=== PATIENT | female | born 1980 | race African-American/Black ===

== ENCOUNTER 2019-01-23 21:23 | Inpatient (IN) | payer OTHER ==
[~2019-01-23] VITALS: Ht 162.6 cm; Wt 74.8 kg
[2019-01-23 21:26] VITALS: BP 108/62
[2019-01-23] MEDS ORDERED: PROTONIX40 M1 PO (21:52)
[2019-01-23] MEDS ORDERED: ALDACTONE50 MG PO (21:53)
[2019-01-23] MEDS ORDERED: PRENATAL PO (21:53)
[2019-01-23 22:48] LABS: HEMATOCRIT 26.3 % (37.0-47.0); HEMOGLOBIN 8.9 gm/dL (12.0-15.0); MCH 34.6 pg (26.0-34.0); MCHC 33.8 g/dL (28.0-37.0); MCV 102.4 fL (80.0-100.0); PLATELET COUNT 163 thou/uL (150-400); RBC 2.57 mil/uL (4.20-5.00); RDW 21.8 % (10.5-14.5); WBC 6.2 thou/uL (4.0-11.0)
[2019-01-23 22:59] LABS: CALCIUM 8.3 mg/dL (8.5-10.1); CREATININE 0.8 mg/dL (0.6-1.0); POTASSIUM 3.4 mmol/L (3.5-5.1)
[2019-01-23 23:23] LABS: ABSOLUTE NEUTROPHILS 4.4 thou/uL (1.4-8.2); ANISOCYTOSIS 2+; POLYCHROMASIA 1+
[2019-01-23 23:56] LABS: ESR (SEDRATE) 73 mm/hour (0-19)
[2019-01-24 01:29] VITALS: BP 109/57
[2019-01-24 01:37] VITALS: BP 109/57
[2019-01-24 02:00] VITALS: BP 113/66
--- NOTE | 2019-01-24 04:19 | NUR ---
PT ARRIVED ON UNIT 0150. ADMISSION COMPLETE. EDUCATION PROVIDED. orders implemented. call light and personal belonings within reach, will continue poc until eos.
[2019-01-24 07:27] VITALS: BP 100/59
[2019-01-24 09:13] LABS: HEMATOCRIT 24.3 % (37.0-47.0); HEMOGLOBIN 8.4 gm/dL (12.0-15.0); MCH 35.1 pg (26.0-34.0); MCHC 34.4 g/dL (28.0-37.0); RBC 2.38 mil/uL (4.20-5.00); RDW 21.5 % (10.5-14.5); WBC 6.2 thou/uL (4.0-11.0)
[2019-01-24 09:28] LABS: CALCIUM 8.4 mg/dL (8.5-10.1); CREATININE 0.8 mg/dL (0.6-1.0); POTASSIUM 3.6 mmol/L (3.5-5.1)
--- NOTE | 2019-01-24 11:29 | NUR ---
WOUND CONSULT; A LEDT LOWER EXTREMITY WOUND WAS IDENTIFIED MEANSURES 3 X .9 X 1.0 WITH A TUNNEL @ 12:00/ THE TUNNEL MEANSURES 2.0 CM. THE WOUND IS TENDER. NO DRAINAGE SEEN. RECOMMENDATION; CLEANSE W/ NS OR WOUND CLEANSER, PACK WITH AQUACEL AG TO 12:00,COVER WITH OPTIFOAM AG, SECURE WITH A TUBIGRIP, CHANGE DAILY/PRN DISCUSSED WITH RN
--- NOTE | 2019-01-24 15:46 | NUR ---
INITIAL ASSESSMENT: Pt evaluated for d/c planning needs. Reviewed chart and spoke with nurse and pt. Pt is alert and oriented. Pt was hospitalized at [facility] for surgery, returned home and went back to [facility] for infection. Pt said she completed her antibiotics about a week ago. Pt was independent with ADL's prior to admission to the hospital and has cane for ambulation. Will remain available to assist as needed.
[2019-01-24 16:59] VITALS: BP 115/65
--- NOTE | 2019-01-24 18:19 | NUR ---
Assumed care of pt at 0700. Pt a&ox4. IVF and antibiotic infusing. Wound dressing changed per order. Pt diet changed to regular. Pt underwent US cyst aspiration. Call light within reach. Will continue to monitor.
[2019-01-24 20:11] VITALS: BP 104/54
--- NOTE | 2019-01-25 08:05 | NUR ---
PATIENT ALERT AND ORIENTED X4. DENIES PAIN. UP IN HALLS. SLEPT OFF AND ON DURING NIGHT. DRESSING ON INNER LLL.
[2019-01-25 09:10] VITALS: BP 110/52
--- NOTE | 2019-01-25 12:47 | HC ---
[facility] [place] [address] CONSULTATION Name: ELLY DAWN Room #: [facility] ADM IN M.R.#: [id number] Admission: 01/24/19 Attend Phys: Guilherme Escamilla MD Discharge: Date of : 84 Report #: [id number] THIS REPORT FOR: //name// CC: [place] physician/PCP Guilherme Escamilla DATE OF SERVICE: 01/24/2019 INFECTIOUS DISEASE CONSULTATION REASON FOR CONSULTATION: I was asked to evaluate concerning left leg soft tissue infection. HISTORY OF PRESENT ILLNESS: The patient is a 38-year-old. On 12/20/2018 at [facility] underwent incision and drainage of the left calf abscess. The specifics of this are not very clear. The patient was a poor historian. She did not want to spend much time discussing her history. She was treated with intravenous antibiotics. I do not know the culture results. She then developed increased swelling to the left leg and breakdown of the skin throughout. She did have pictures of this and looks more like venous stasis ulcerations and dermatitis with secondary infection. This again was treated with IV antibiotic therapy. She improved. Her left medial calf incision has subsequently dehisced. She has had yellow drainage from this. Increased pain and therefore presents to the Emergency Room for further evaluation. Denies any fever, chills or sweats. REVIEW OF SYSTEMS: No cardiopulmonary, GI or complaints. ALLERGIES: None. MEDICATIONS: As noted on her MAR including vancomycin and ceftriaxone. PAST MEDICAL HISTORY: Chronic lower extremity edema, left greater than right. Smoker of cigarettes. FAMILY HISTORY: Noncontributory. SOCIAL HISTORY: Works from home, smoker of cigarettes, minimal alcohol intake. REVIEW OF SYSTEMS: Ten-point review was negative other than what is described above. PHYSICAL EXAMINATION: VITAL SIGNS: Afebrile and hemodynamically stable. SKIN: With left medial calf induration, incisional wound with small amount of serous drainage, tenderness in this calf region. 2+ edema in the lower leg. No [facility] [address] [place] [address] CONSULTATION Name: ELLY DAWN Room #: [facility] ADM IN M.R.#: [id number] Admission: 01/24/19 Attend Phys: Guilherme Escamilla MD Discharge: Date of : 84 Report #: [id number] other palpable adenopathy. EYES: Without scleral icterus. MOUTH: Without mucositis. NECK: Supple. LUNGS: Clear. HEART: Regular, without murmur. ABDOMEN: Soft and nontender with no hepatosplenomegaly or mass. LABORATORY STUDIES: Reviewed. Creatinine 0.8. Serum test negative. Hemoglobin 8.9, WBC 6.2, platelet 162,000. Differential unremarkable. Sedimentation rate 73. RADIOLOGICAL DATA: CT scan of the lower extremities shows rim-enhancing fluid collection, superficial margin of the proximal medial head of the gastroc. Also associated cellulitis and edema. IMPRESSION: 1. Left calf soft tissue abscess. 2. Venous stasis disease. RECOMMENDATIONS: We will continue with vancomycin pending further culture results. Surgical consultation. Obtain records from [facility] for microbiology reports. <ELECTRONICALLY SIGNED> By: Sergei Johnson MD 01/25/19 1247 [id number] Sergei Johnson MD /nt
[2019-01-25] MEDS ORDERED: DOXYCYCLINE 10100 MG PO (14:46)
[2019-01-25 19:27] VITALS: BP 110/52
[2019-01-25 22:14] VITALS: BP 110/52
--- NOTE | 2019-01-25 22:17 | NUR ---
PATIENT ALERT AND ORIENTED AND COOPERATIVE WITH PLAN OF CARE AND STATED WANTS TO GO HOME TODAY. SEEN BY WOUND CARE AND GIVEN WOUND CARE INSTRUCTIONS TO CONTINUE WOULD CARE AT HOME. PATIENT DISCHARGE IN STABLE CONDITION WITH DISCHARGE INSTRUCTIONS AND PRESCRIPTIONS AND ALL PERSONAL BELONGINGS.
--- NOTE | 2019-01-26 11:40 | HC ---
[facility] [place] [address] CONSULTATION Name: ELLY DAWN Room #: [facility] IN M.R.#: [id number] Admission: 01/24/19 Attend Phys: Guilherme Escamilla MD Discharge: 01/25/19 Date of : 84 Report #: [id number] THIS REPORT FOR: //name// CC: [place] physician/PCP Guilherme Escamilla DATE OF SERVICE: 01/25/2019 CHIEF COMPLAINT: Wound to the left medial calf. HISTORY OF PRESENT ILLNESS: This is a 38-year-old female patient who was admitted from the Emergency Department on 01/24/2019. She had a surgical wound to her left medial calf with original surgery being performed on 12/20/2018 at [facility]. It is unclear as to what the cause of the original surgery was for the purpose. She was admitted with however, wound infection and cellulitis. She had a fluid collection noted on CT and underwent a percutaneous drainage. She was seen by General Surgery. She declined surgical exploration or debridement on the basis that she "had too much anesthesia in the last 30 days." I have been asked late in the day today to see her prior to discharge. PAST MEDICAL HISTORY: Positive for bilateral lower extremity edema, left leg surgery of undetermined purpose from 11/2018 with some dehiscence and infection on 01/18/2019. SOCIAL HISTORY: The patient admits to alcohol use on special occasions. Currently, smokes cigarettes daily MEDICATIONS: Include pantoprazole, vitamins, and Aldactone. ALLERGIES: No known drug allergies. FAMILY HISTORY: Noncontributory. REVIEW OF SYSTEMS: CONSTITUTIONAL: The patient denies fever, chills, or weight loss. NEUROLOGICAL: The patient denies focal weakness, numbness, or tingling. EYES: The patient denies visual changes, redness, or drainage. ENT: The patient denies earache, nasal drainage, or sore throat. CARDIOVASCULAR: The patient denies chest pain, palpitations or diaphoresis. PULMONARY: The patient denies cough or shortness of breath. GASTROINTESTINAL: The patient denies nausea, vomiting, diarrhea or abdominal pain. ORTHOPEDIC: The patient has some pain and swelling in the surgical wound in her left medial calf. Other systems in a 14-point review of systems are negative. [address] [address] CONSULTATION Name: ELLY DAWN Room #: [facility] IN M.R.#: [id number] Admission: 01/24/19 Attend Phys: Guilherme Escamilla MD Discharge: 01/25/19 Date of : 84 Report #: [id number] PHYSICAL EXAMINATION: VITAL SIGNS: At this time include temperature 37.0, pulse 67, respiratory rate 17, and blood pressure 110/52. GENERAL: This is a chronically ill-appearing female patient who appears to be in minimal distress. HEENT: Head normocephalic. Nose is clear. NECK: Supple. LUNGS: Diminished. ABDOMEN: Soft, obese, nontender. EXTREMITIES: Lower extremities demonstrate 2-3+ edema bilateral lower extremities and some chronic induration of the left lower extremity. She has what appears to be a surgical incision on the medial aspect of the left proximal calf. There is some tunneling. There is some retained suture material that I have removed at the bedside. There is a mix of granulation and fibrin and still some mucopurulent type drainage present, minimal tenderness and no obvious fluctuance. NEUROLOGIC: The patient is alert and oriented and appropriate. LABORATORY DATA: Include white blood cell count 6.2 with hemoglobin of 8.4. Sodium 138, potassium 3.6, chloride 107, CO2 of 25, BUN 5, and creatinine 0.8. CLINICAL IMPRESSION: 1. Surgical wound infection to the left medial calf. 2. Bilateral lower extremity edema, possibly consistent with longstanding lymphedema. 3. Obesity. RECOMMENDATIONS: At this point in time, we will recommend daily packing with either iodoform gauze or silver alginate to be covered by a foam dressing and then a compressive frame aligner or other compression stocking to help with edema control. We would be happy to follow her up in the outpatient setting in approximately 7-10 days. Agree with current antibiotic therapy. Cultures have been obtained and are pending at this time. I appreciate being asked to see her in consultation. <ELECTRONICALLY SIGNED> By: Easton Moseley MD 01/26/19 1140 [id number] Easton Moseley MD /nt
== END 2019-01-25 19:00 | disposition home or self-care (01) | DRG 863 ==
LOC: ER 21:23 → EROBS 01-24 01:09 → 4E 01-24 01:09
PROVIDERS: Emergency Medicine; Nurse Practitioner Family; ADMIT Hospitalist
PROC: 0J9P3ZZ Drainage of Left Lower Leg Subcutaneous Tissue and Fascia, Percutaneous Approach (ICD-10-PCS; principal; 2019-01-24)
DX: T81.41XA Infection following a procedure, superficial incisional surgical site, initial encounter (principal); L02.416 Cutaneous abscess of left lower limb; L03.116 Cellulitis of left lower limb; T81.30XA Disruption of wound, unspecified, initial encounter; I87.8 Other specified disorders of veins; E66.9 Obesity, unspecified; Y83.8 Other surgical procedures as the cause of abnormal reaction of the patient, or of later complication, without mention of misadventure at the time of the procedure; Z79.899 Other long term (current) drug therapy; Y92.89 Other specified places as the place of occurrence of the external cause; Z68.28 Body mass index [BMI] 28.0-28.9, adult
CPT/HCPCS: 10084